=== PATIENT | male | born 1960 | race Caucasian/White ===

== ENCOUNTER 2023-12-12 12:31 | Emergency (ER) | payer MEDICARE, SELFPAY ==
--- NOTE | 2023-12-12 12:31 | ECG_ITS ---
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 Measurements Intervals [place] Rate: 82 P: 21 SC: 195 QRS: -48 QRSD: 94 T: 111 QT: 383 QTc: 450 Interpretive Statements SINUS RHYTHM LEFT AXIS DEVIATION [QRS AXIS < -30] LOW QRS VOLTAGE IN PRECORDIAL LEADS [QRS DEFLECTION < 1.0 mV IN CHEST LEADS] ANTEROSEPTAL MYOCARDIAL INFARCTION , OF INDETERMINATE AGE [40+ ms Q WAVE IN V1-V4] MODERATE T-WAVE ABNORMALITY, CONSIDER LATERAL ISCHEMIA [-0.1+ mV T-WAVE IN I/aVL/V5/V6] No previous ECG available for comparison Electronically Signed On 12-13-2023 9:16:03 CDT by Chuck Taylor M.D. [id number]
[2023-12-12 12:32] VITALS: BP 167/101; PULSE 78; RESP 23; TEMP 37.2; O2SAT 96
[2023-12-12 12:45] VITALS: BP 167/97; PULSE 82; RESP 15; O2SAT 94
--- NOTE | 2023-12-12 12:49 | ED_ITS ---
HPI - Weakness 2 General: Chief complaint: Weakness Stated complaint: weakness Time Seen by Provider: 12/12/23 12:32 History of Present Illness: 63-year-old male presents to the emergen cy room with complaint of generalized weakness lower extremity swelling. No orthopnea no chest pain. He denies dysuria urgency or frequency does smell strongly of urine. Denies any fever sweats or chills. Associated symptoms: Denies chest pain, chills, dysuria or fever(s) Review of Systems 2 Const: Denies: fever(s) or chills Card: Denies: chest pain Resp: Denies: dyspnea GI: Denies: abdominal pain : Denies: dysuria, urinary frequency or urinary urgency Musc: Denies: neck pain or back pain Skin/Breast: Denies: rash Physical Exam 2 Const: GENERAL APPEARANCE: cooperative ORIENTATION/CONSCIOUSNESS: Yes awake, Yes oriented to person, Yes oriented to place and Yes oriented to time HENMT: COMMON NORMALS: normocephalic, atraumatic and hearing grossly normal bilaterally HEAD & SCALP: normocephalic and atraumatic Resp: COMMON NORMALS: normal respiratory effort, No retractions, No use of accessory muscles and clear to auscultation bilaterally AUSCULTATION: clear to auscultation bilaterally Cardio: COMMON NORMALS: regular rate, regular rhythm and No murmurs present (Cardio) RATE: regular rate RHYTHM: regular rhythm GI: COMMON NORMALS: Soft to palpation and No hepatosplenomegaly present A USCULTATION: Yes normoactive bowel sounds PALPATION: Yes Soft to palpation, No Tenderness to palpation present (GI), No Guarding due to palpation present (GI) and Yes No hepatosplenomegaly present Extremity: COMMON NORMALS: normal to inspection, capillary refill normal and no calf tenderness OTHER: 1+ edema lower extremities Neuro: SENSORIUM/ORIENTATION: Yes oriented to person, Yes oriented to place and Yes oriented to time Skin: COMMON NORMALS: no rashes or lesions noted GENERAL SKIN EXAM: no rashes or lesions noted Course 2 Vital Signs: Vital signs: Vital Signs Temperature 98.9 F 12/12/23 12:32 Pulse Rate 85 12/12/23 17:23 Respiratory Rate 15 12/12/23 12:45 Blood Pressure 151/95 12/12/23 17:23 Pulse Oximetry 98 12/12/23 17:23 Oxygen Delivery Me thod Room Air 12/12/23 12:32 MDM - Weakness Medical Decision Making Patient noticed improvement after diuresis. Will discharge patient home on lisinopril 10 mg daily Lasix 20 mg daily set up for outpatient echocardiogram and have the patient follow-up with his primary care doctor early next week. If he has worsening or change symptoms return. He has noticed improvement both swelling in his legs and when he ambulated to the restroom he had no difficulty with chest pain or shortness of breath. Medical Records I reviewed the patient's medical records. Lab Data I reviewed the patient's lab results. 12/12/23 14:48 12/12/23 14:48 Radiology Impressions Chest X-Ray 12/12/23 14:12 IMPRESSION: No acute pathology given technique. Laboratory Results WBC 6.38 10^3/uL (3.29-11.43) 12/12/23 14:48 RBC 4.76 10^6/uL (3.85-5.65) 12/12/23 14:48 Hgb 13.50 g/dL (11.27-16.99) 12/12/23 14:48 Hct 39.7 % (37-53) 12/12/23 14:48 MCV 83.4 fl (82-101) 12/12/23 14:48 MCH 28.4 pg (27-33) 12/12/23 14:48 MCHC 34.0 g/dL (30-55) 12/12/23 14:48 RDW 13.9 % (12.1-15.1) 12/12/23 14:48 Plt Count 232 10^3/cmm (157-399) 12/12/23 14:48 MPV 10.4 fL (7.4-10.4) 12/12/23 14:48 Neut % (Auto) 67.8 % 12/12/23 14:48 Lymph % (Auto) 20.5 % 12/12/23 14:48 [place] % (Auto) 8.5 % 12/12/23 14:48 Eos % (Auto) 1.6 % 12/12/23 14:48 Baso % (Auto) 1.1 % 12/12/23 14:48 Neut # (Auto) 4.33 10^3/uL (1.8-7.7) 12/12/23 14:48 Lymph # (Auto) 1.3 10^3/uL (0.8-4.8) 12/12/23 14:48 [place] # (Auto) 0.5 10^3/uL (0.2-0.9) 12/12/23 14:48 Eos # (Auto) 0.1 10^3/uL (0.0-0.8) 12/12/23 14:48 Baso # (Auto) 0.1 10^3/uL (0.0-0.1) 12/12/23 14:48 Nucleated RBC % (auto) 0 % 12/12/23 14:48 Nucleated RBCs # 0.0 /100WBC 12/12/23 14:48 Sodium 132 mmol/L (136-145) L 12/12/23 14:48 Potassium 4.2 mmol/L (3.5-5.1) 12/12/23 14:48 Chloride 96 mmol/L (98-107) L 12/12/23 14:48 Carbon Dioxide 26 mmol/L (22-29) 12/12/23 14:48 Anion Gap 14.2 (5-19) 12/12/23 14:48 BUN 18 mg/dL (8-23) 12/12/23 14:48 Creatinine 1.4 mg/dL (0.7-1.2) H 12/12/23 14:48 GFR Calculation 50.9 mL/min (90-130) L 12/12/23 14:48 Glucose 129 mg/dL (65-115) H 12/12/23 14:48 Calculated Osmolality 278 mOsm/kg (285-295) L 12/12/23 14:48 Calcium 8.7 mg/dL (8.5-10.5) 12/12/23 14:48 Total Bilirubin 0.6 mg/dL (0.15-1.2) 12/12/23 14:48 AST 22 U/L (0-40) 12/12/23 14:48 ALT 8 U/L (0-41) 12/12/23 14:48 Alkaline Phosphatase 56 U/L (40-130) 12/12/23 14:48 NT-Pro-B Natriuret Pep 2428 pg/mL (0-125) H 12/12/23 14:48 Total Protein 7.7 g/dL (6.6-8.7) 12/12/23 14:48 Albumin 4.2 g/dL (3.5-5.2) 12/12/23 14:48 Globulin 3.5 g/dL (1.3-4.6) 12/12/23 14:48 All radiology interpretation(s) finalized by discharge Discharge Plan Discharge Patient Disposition: Home Clinical Impression: CHF (congestive heart failure), HTN (hypertension), CKD (chronic kidney disease) Condition: Stable Prescriptions: New Lasix 20 mg tablet 20 mg PO DAILY Qty: 30 0RF lisinopril 10 mg tablet 10 mg PO DAILY Qty: 30 0RF Discharge Orders: Discharge ED (Routine); Ordered 12/12/23 Ordered By: Noel Diaz Discharge Diet: Usual diet Discharge Activity: Resume usual activity Patient Instructions: Opioid Safety, Pain Management Activity Restrictions/Additional Instructions: Thank you for choosing [facility] for your healthcare needs today. It is very important that you follow up as instructed or that you return to the Emergency Department should you have concerns or if your condition changes or worsens in any way. You were seen in the emergency room for swelling in your legs and some shortness of breath. You are mildly fluid overloaded your blood pressure is elevated. Recommend to start Lasix 20 mg once daily and lisinopril 10 mg once daily. Additionally will get she set up for an outpatient echocardiogram. You should follow-up with your doctor within a week. Coding Level of Care Code ED Property Inspector for Emily Aldrich Related Data Previous Rx's Medication Instructions Recorded furosemide 20 mg tablet (Lasix) 20 mg PO DAILY #30 tabs 12/12/23 lisinopril 10 mg tablet 10 mg PO DAILY #30 tabs 12/12/23 Allergies Allergy/AdvReac Type Severity Reaction Status Date / Time No Known Allergies Allergy Verified 12/12/23 12:38
--- NOTE | 2023-12-12 14:12 | XRR_ITS ---
PROCEDURE INFORMATION: Exam: XR Chest Exam date and time: 12/12/2023 2:33 PM Age: 63 years old Clinical indication: Dyspnea and shortness of breath; Additional info: Dyspnea/cough TECHNIQUE: Imaging protocol: Radiologic exam of the chest. Views: 1 view. COMPARISON: No relevant prior studies available. FINDINGS: Lungs: No significant active pulmonary pathology. Pleural spaces: No pleural effusion. Heart/Mediastinum: Cardiomediastinal contours accentuated by low lung volumes and AP technique. Diaphragm: Elevated right hemidiaphragm. Bones/joints: No significant pathology. XR/XR chest 1V portable [id number] IMPRESSION: No acute pathology given technique.
[2023-12-12 14:36] VITALS: BP 149/97; PULSE 85; O2SAT 98
[2023-12-12] MEDS: FUROsemide 10 mg/mL SDV 4mL 40 MG IVP (14:36)
[2023-12-12 14:59] LABS: Basophils # 0.1 10^3/uL (0.0-0.1); Basophils % 1.1 %; Eosinophils # 0.1 10^3/uL (0.0-0.8); Eosinophils % 1.6 %; Hematocrit 39.7 % (37-53); Lymphocytes # 1.3 10^3/uL (0.8-4.8); Lymphocytes % 20.5 %; Mean Corpuscular Hemoglobin 28.4 pg (27-33); Mean Corpuscular Volume 83.4 fl (82-101); Mean Platelet Volume 10.4 fL (7.4-10.4); Monocytes # 0.5 10^3/uL (0.2-0.9); Monocytes % 8.5 %; Neutrophils # 4.33 10^3/uL (1.8-7.7); Neutrophils % 67.8 %; Nucleated Red Blood Cells % 0 %; Platelet Count 232 10^3/cmm (157-399); Red Blood Count 4.76 10^6/uL (3.85-5.65); Red Cell Distribution Width 13.9 % (12.1-15.1); White Blood Count 6.38 10^3/uL (3.29-11.43)
[2023-12-12 15:29] LABS: Alanine Aminotransferase 8 U/L (0-41); Albumin Level 4.2 g/dL (3.5-5.2); Alkaline Phosphatase 56 U/L (40-130); Anion Gap 14.2 (5-19); Aspartate Amino Transferase 22 U/L (0-40); Blood Urea Nitrogen 18 mg/dL (8-23); Calcium 8.7 mg/dL (8.5-10.5); Carbon Dioxide 26 mmol/L (22-29); Chloride 96 mmol/L (98-107); Globulin 3.5 g/dL (1.3-4.6); Glomerular Filtration Rate 50.9 mL/min (90-130); Glucose 129 mg/dL (65-115); NT Pro B Type Natriuretic Pept 2428 pg/mL (0-125); Osmolality Calculated 278 mOsm/kg (285-295); Potassium 4.2 mmol/L (3.5-5.1); Sodium 132 mmol/L (136-145); Total Bilirubin 0.6 mg/dL (0.15-1.2); Total Protein 7.7 g/dL (6.6-8.7)
[2023-12-12 15:43] VITALS: BP 167/100; PULSE 86; O2SAT 98
[2023-12-12 17:23] VITALS: BP 151/95; PULSE 85; O2SAT 98
--- NOTE | 2023-12-14 07:49 | DCPLANNER ---
faxed echo order to scheduling for er f/u
== END 2023-12-12 17:24 | disposition home or self-care (01) ==
PROVIDERS: Emergency Provider Family Medicine
DX: I13.0 Hypertensive heart and chronic kidney disease with heart failure and stage 1 through stage 4 chronic kidney disease, or unspecified chronic kidney disease (principal); N18.9 Chronic kidney disease, unspecified; I50.9 Heart failure, unspecified
CPT/HCPCS: 36415; 71045; 80053; 83880; 85025; 93005; 96374; 99285; J1940

== ENCOUNTER → 2024-07-06 12:41 | Outpatient (BNVA) | payer MEDICARE, SELFPAY | PROVIDERS: PCP Registered Nurse; Visit Provider Internal Medicine | DX: I13.0 Hypertensive heart and chronic kidney disease with heart failure and stage 1 through stage 4 chronic kidney disease, or unspecified chronic kidney disease (principal); N18.9 Chronic kidney disease, unspecified; I50.9 Heart failure, unspecified; Z87.891 Personal history of nicotine dependence; R07.9 Chest pain, unspecified | CPT/HCPCS: 36415; 80048; 83880; 93005; 99204 ==

== ENCOUNTER 2024-07-21 08:06 | Outpatient (CLI) | payer MEDICARE, SELFPAY ==
[2024-07-21 08:32] VITALS: BMI 38.2
--- NOTE | 2024-07-21 08:33 | NMCV_ITS ---
NM tracee perf SPECT r/s* [id number] Kapil Galan Age: 64 Gender: M : 1960 Exam Date: 07/21/2024 10:18 Ordering Phys: Chuck Taylor M.D ([email or web address]) Technologist: KAT Snow Exam Location: [facility] Indications: CP STRESS TEST Please see separate stress test report in [facility] for full findings IMAGE PROTOCOL Rest/Stress 1 Lexiscan Day Radiopharmaceutical Dose (mCi) Administration Site Administered by Rest: Tc-99m 10.8 IV KAT Snow Sestamibi Stress:Tc-99m 32.7 IV KAT Garay Sestamibi Rest: 21-Jul-2024 60 Discovery 630 Stress: 21-Jul-2024 30 Discovery 630 0.4mg Lexiscan. Images obtained in supine and prone position. SPECT RESULTS Technical Quality: Good Raw Data Analysis: Normal Image Corrections: No attenuation or motion correction applied Summed Stress Score: 9 Summed Rest Score: 6 Summed Difference Score: 3 PERFUSION FINDINGS Large sized, partially reversible perfusion defects seen in inferior and inferolateral sethi. This is consistent with the large area of prior infarct with significant rafi-infarct ischemia in the RCA territory. Medium to large sized area of prior infarct seen in left circumflex artery territory. FUNCTIONAL RESULTS (calculated via Gated SPECT) Stress Image LV EF (%): 44 Stress EDV (mL):126 TID: 1.1 Stress ESV (mL):71 FUNCTIONAL FINDINGS: LV systolic function is mildly reduced with EF of 44% IMPRESSIONS 1. Abnormal myocardial perfusion imaging with large area of prior infarct with significant rafi-infarct ischemia seen in RCA territory. 2. Medium to large size area of prior infarct seen in left circumflex artery territory. 3. LV systolic function is mildly decreased with EF of 44%. Chuck Taylor MD (Electronically Signed) Final Date: 26 July 2024 08:57 S
--- NOTE | 2024-07-21 08:33 | ECG_ITS ---
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 Interpretive Statements LEXISCAN SESTAMIBI STRESS TEST Procedure: At the baseline, the blood pressure was 147/89 mmHg with a heart rate of 76 bpm. The electrocardiogram showed normal sinus rhythm, normal axis with normal ST and T's. The Lexiscan was infused over a period of 20 seconds. A total of 0.4 mg of Lexiscan was infused. The stress phase was continued for a total of 5 minutes. Heart rate was at the end of stress phase was 88 bpm and a blood pressure of 128/67 mmHg. The EKG at the peak infusion revealed normal sinus rhythm with no significant ST-T wave changes. Sestamibi was injected 20 seconds after the Lexiscan infusion. Blood pressure at the end of recovery phase was 130/74 mmHg with a heart rate of 88 bpm. Conclusion: 1. Normal EKG response to Lexiscan infusion 2. No Lexiscan induced chest pain or cardiac arrhythmia. 3. Normal blood pressure and heart rate response. 4. Sestamibi/sestamibi perfusion scan pending; see separate report. Electronically Signed On 08-01-2024 10:56:49 CDT by Chuck Taylor M.D. [email or web address] [id number]
[2024-07-21] MEDS: regadenoson 0.4 Mg/5 ml Syringe IVP (09:44)
[2024-07-21 09:55] VITALS: BP 130/74; PULSE 89
== END 2024-07-21 08:07 | disposition home or self-care (01) ==
LOC: CDL 08:08
PROVIDERS: PCP Registered Nurse; Visit Provider Internal Medicine
DX: R07.9 Chest pain, unspecified (principal); R06.02 Shortness of breath; R93.1 Abnormal findings on diagnostic imaging of heart and coronary circulation
CPT/HCPCS: 36415; 78452; 93017; 96374; A9500; J2785

== ENCOUNTER 2024-08-05 08:50 | Outpatient (CLI) | payer MEDICARE, SELFPAY ==
[2024-08-05] VITALS (24 sets, daily range): BP systolic 108–172; BP diastolic 69–103; PULSE 75–93; RESP 12–29; TEMP 36.7; O2SAT 95–100; BMI 37.0
--- NOTE | 2024-08-05 09:00 | XACV_ITS ---
Exam Room: 2 Ht: 185 cm Wt: 127 kg BSA: 2.61 m2 Gender: Male : 1960 Any Known Allergies: No known allergies Exam Priority: Routine Procedure(s): Procedure Description: Diagnostic procedure Procedure Description: Left Heart Catheterization Procedure Description: Coronary Angiography Diagnostic Cath Status: Elective Diagnostic Findings * INDICATION: 64-year-old man with past medical history of hypertension has recently been found to have low LV function and has chest pain episodes. Stress test was abnormal. Plan for coronary angiogram with possible PCI. Risks and benefit of procedure discussed. * Left Main has no significant disease. * Circumflex has mild luminal irregularities. * Proximal Left Anterior Descending: severe 80- 90% stenosis, BROOKE: 3 flow. * Mid Right Coronary Artery to Distal Right Coronary Artery: Chronic total occlusion, BROOKE: 0 flow. Left to right collaterals seen. * Mid Left Anterior Descending to Distal Left Anterior Descending: severe 90% stenosis, BROOKE: 3 flow. * Coronary angiography shows right dominance. Conclusions 1. Severe proximal and mid LAD stenosis. LOG FEEDER of RCA. All options including CABG vs PCI of LAD and RCA LOG FEEDER revascularization discussed in detail. patient and family will discuss over the weekend and call next week with final plan. Recommendations * Start aspirin 81 mg daily. Cardiology follow up in 1-2 weeks. Pressures Phase:Rest AO : 132 / 75 ( 94 ) @ 12:13:00 PM 131 / 74 ( 95 ) @ 12:22:00 PM 131 / 74 ( 96 ) @ 12:22:00 PM LV : 137 / -13 / 3 @ 12:22:00 PM 137 / -13 / 3 @ 12:22:00 PM Valves Phase:DefaultPhase AV : 7.0 @ 11:29:02 AM AV Mean Gradient: 19.0 @ 11:29:02 AM Clinical Evaluation EBL: 5mL-10mL Procedural Details Procedure Consent Obtained. Pre-Procedure Time Out. Identified patient by full name and date of as verbalized by the patient/guarantor. Does the consent match the physician's order: Yes. Accurate & Complete Informed Consent: Yes. Inpatient/Outpatient History & Physical on Chart: Yes. If H&P is completed, is and addenduem needed: No. Visualize and Verify Site with Patient/Guarantor: N/A. Relevant Radiology Images available: Yes. The risks, benefits, and alternatives of sedation and/or procedure were discussed by physician. The patient agrees to continue. Procedure started. [facility] Clinical Fraility Score: 3: Managing Well. Geriatric Personal Care Aide Indications: LV Dysfunction; abnormal stress test. Chest Pain Symptom Assessment: Typical Angina Symptoms. Cardiovascular Instability: No. Correct patient, site and procedure confirmed by cath team. PERRLA. Strong, equal hand consulting senior practice director bilaterally. Lungs clear x 5 lobes. IV Site on Arrival: 20 gauge in the left anticubital. IV Fluids: 0.9% NaCl at KVO. 0 mL infused prior to label folder. Pre Procedural Pulses: bilateral dorsalis pedis was Doppled. Pre Procedural Pulses: bilateral posterior tibial was Doppled. Pre Procedural Pulses: bilateral radial was 3+. Oxygen started at 2liters/min via nasal canula. right groin was prepped with chloroprep then draped in the usual sterile fashion. right radial was prepped with chloroprep then draped in the usual sterile fashion. Physician notified. Baseline sample Acquired. HR: 96 BPM. Patient's family in CPRU room #4. Dr. Taylor will update at the completion of the procedure. Equipment: 6F - Radial. Cardiac Cath Pack. ACIST Manifold Kit Model BT 2000. Heparinized Saline (2 units/mL), 1000 mL bag. Physician arrived. Physician scrubbed in. Immediate Pre-Procedure Time Out. Correct Patient: Yes; Correct Procedure: Yes; Correct Site: Yes; Correct Patient Position: Yes; Correct Supplies: Yes; Dried Flammable Prep: Yes; Blood Products Available: N/A;. Lidocaine 1% infiltrated to the right radial. Arterial access obtained. A 5 yakut TIG catheter in over the exchange J wire. Multiple views taken of left coronary artery. Catheter redirected to the RCA. Catheter redirected to the LV. Cineography of the RCA performed. EDP Sample taken: LV 137/-14,3; HR: 81 BPM; SpO2: 98%. Pullback taken: LV 137/-14,3; AO 131/74(95); Mean: 19mmHg, Peak to Peak: 7mmHg, SEP: 8sec/min; HR: 81 BPM; SpO2: 99%. Catheter removed over the exchange J wire. Dr. Taylor scrubbed out. A TR Band was successful obtaining hemostatsis at the Right Radial artery insertion site. Post Procedure: Pulses reassessed and unchanged. PERRLA. Strong, equal hand consulting senior practice director bilaterally. No VTE prophylaxis required. Medication's Wasted: Lidocaine 1% = 18 mL. Medication's Wasted: Nitro = 49.8 mg. Medication's Wasted: Heparin = 1000 units. Total IV fluids: 50 mL. Post-op diagnosis: Multivessel CAD. Complications: none. Estimated blood loss: 5mL-10mL. Responsiveness - Normal response to verbal stimuli; alert and oriented, PERRLA. Airway - Unaffected, no intervention required; spontaneous ventilation. Circulation: W/N/L, pulses unchanged. Nausea/Vomiting: No. Procedure completed. Patient transferred by bed to CPRU. Vital chart was stopped. Access Site Site: Right Radial artery Sheath Size: 6 Fr Hemostasis Method: TR Band Hemostasis Success: Successful Procedure Medications Start: 11:09 AM Stop: 11:09 AM Medication: Versed Amount: 1 mg Route: I.V. Start: 11:09 AM Stop: 11:09 AM Medication: Fentanyl Amount: 25 mcg Route: I.V. Start: 11:03 AM Stop: 11:03 AM Medication: Versed Amount: 1 mg Route: I.V. Start: 11:03 AM Stop: 11:03 AM Medication: Fentanyl Amount: 50 mcg Route: I.V. Start: 11:10 AM Stop: 11:10 AM Medication: Nitrogylcerin Amount: 200 mcg Route: I.A. Start: 11:15 AM Stop: 11:15 AM Medication: Heparin Amount: 5000 units Route: I.V. Start: 11:22 AM Stop: : AM Medication: Fentanyl Amount: 25 mcg Route: I.V. I, the attending physician, have reviewed and verified all procedure medications. Yes, all medications given per verbal order History/Risk Factors Hypertension: Yes Dyslipidemia: No Peripheral Arterial Disease (PAD): No Myocardial Infarction (NM): No Obesity: Yes Renal Disease: No Tobacco Use: Former Prior Interventions PCI: No CABG: No Valve Surgery: No Report Signatures Finalized by Chuck Taylor MD on 08/08/2024 11:51 AM
[2024-08-05] MEDS: diphenhydrAMINE 50 mg Capsule PO (09:30)
[2024-08-05] MEDS: aspirin 325 mg Tablet PO (09:30)
[2024-08-05 09:32] LABS: Basophils # 0.1 10^3/uL (0.0-0.1); Basophils % 1.2 %; Eosinophils # 0.1 10^3/uL (0.0-0.8); Eosinophils % 1.5 %; Lymphocytes % 26.5 %; Mean Corpuscular HGB Conc 33.3 g/dL (30-55); Mean Corpuscular Hemoglobin 27.4 pg (27-33); Mean Corpuscular Volume 82.3 fl (82-101); Mean Platelet Volume 9.5 fL (7.4-10.4); Monocytes # 0.5 10^3/uL (0.2-0.9); Monocytes % 7.3 %; Neutrophils # 4.69 10^3/uL (1.8-7.7); Neutrophils % 63.1 %; Nucleated Red Blood Cells % 0 %; Platelet Count 328 10^3/cmm (157-399); Red Blood Count 4.86 10^6/uL (3.85-5.65); White Blood Count 7.43 10^3/uL (3.29-11.43)
[2024-08-05 09:51] LABS: Anion Gap 15.5 (5-19); Blood Urea Nitrogen 20 mg/dL (8-23); Calcium 9.4 mg/dL (8.5-10.5); Carbon Dioxide 25 mmol/L (22-29); Chloride 101 mmol/L (98-107); Glucose 187 mg/dL (65-115); Osmolality Calculated 292 mOsm/kg (285-295); Potassium 4.5 mmol/L (3.5-5.1); Sodium 137 mmol/L (136-145)
--- NOTE | 2024-08-05 10:54 | W.PM.OPSFHP ---
Same Day Surgery H&P Indication for Procedure/HPI DATE OF PROCEDURE: August 05, 2024 CHIEF COMPLAINT/INDICATIONFOR SURGICAL PROCEDURE: LV dysfunction/ abnormal stress test PREOP DIAGNOSIS: LV dysfunction/ abnormal stress test PLANNED PROCEDURE: Operation Date: 08/05/24 10:00 Proposed Procedures p Cardiac Catheterization - [facility] w/w/o LV coros(Left) - Chuck Taylor M.D Possible percutaneous coronary intervention 64-year-old man with past medical history of hypertension has recently been found to have low LV function and has chest pain episodes. Stress test was abnormal. Plan for coronary angiogram with possible PCI. Risks and benefit of procedure discussed. Medications/Allergies* Home Medications ?Medication ?Instructions ?Recorded ?Confirmed ?Type spironolactone 25 mg tablet 25 mg PO DAILY 07/06/24 08/04/24 History furosemide 20 mg tablet (Lasix) 40 mg PO DAILY 08/04/24 08/05/24 History lisinopril 20 mg tablet 40 mg PO DAILY 08/04/24 08/05/24 History simvastatin 5 mg tablet 5 mg PO QPM 08/05/24 08/05/24 History Allergies/Adverse Reactions Allergy/AdvReac Type Severity Reaction Status Date / Time No Known Allergies Allergy Verified 07/06/24 12:57 Current Medications: Generic Name Dose Route Start Last Admin Trade Name Freq PRN Reason Stop Dose Admin Sodium Chloride 1,000 mls @ 50 mls/hr 08/05/24 09:00 08/05/24 09:52 Sodium Chloride 0.9% IV 08/06/24 04:59 Not Given .Q20H ONE Pertinent History/Comorbid Conditions* Social History Smoking and tobacco/nicotine status: former use of tobacco/nicotine (chewing tobacco) Pertinent Exam Findings alert, oriented x 3, clear to auscultation bilaterally and regular rate & rhythm Conscious Sedation Assessment PATIENT ASSESSED PRIOR TO SEDATION, WITH NO CHANGE NOTED: Yes AIRWAY EVAL/ANESTHESIA PLAN: normal airway, ASA III, Local Anesthesia, Risks, benefits & alternatives of sedation and/or procedure discussed and Patient agrees to continue as planned ADDITIONAL INFORMATION: Moderate sedation Recommendations Risks and benefits of procedure reviewed and Patient/family agree to proceed Surgery/Procedure today (Left heart cath with possible percutaneous coronary intervention) Coding Level of Care Code Acute Code for Javier Valdemar
--- NOTE | 2024-08-05 12:05 | PM.PROC ---
Procedure Note: Date of procedure: 08/05/24 Pre-procedure diagnosis: LV dysfunction/abnormal stress test Post-procedure diagnosis: other (Severe LAD stenosis. POWERTRAIN CONTROL SYSTEMS ENGINEER of RCA) Procedure: Left main artery is patent. Left circumflex artery is patent. LAD has severe proximal and mid vessel stenosis. RCA has mid to distal vessel POWERTRAIN CONTROL SYSTEMS ENGINEER. Has left to right collaterals to the PDA/ PLV We have stopped after diagnostic imaging today. Discussed with patient and family about all options including referring him for heart team discussion regarding CABG versus PCI of LAD and possible attempt at RCA POWERTRAIN CONTROL SYSTEMS ENGINEER revascularization. Patient and family will decide over the weekend and inform us by tomorrow. Start aspirin 81 mg daily. Outpatient cardiology follow up in 7-10 days Performing Provider: Chuck Taylor Estimated blood loss (mL): 5 Complications: None Condition: stable Disposition: same day Coding Level of Care Code Acute Code for Emily Aldrich
== END 2024-08-05 14:50 | disposition home or self-care (01) ==
PROVIDERS: Family Provider Family Medicine; PCP Registered Nurse; Visit Provider Internal Medicine
DX: I25.10 Atherosclerotic heart disease of native coronary artery without angina pectoris (principal); I25.82 Chronic total occlusion of coronary artery; I10 Essential (primary) hypertension; E66.9 Obesity, unspecified; Z68.37 Body mass index [BMI] 37.0-37.9, adult; Z87.891 Personal history of nicotine dependence
CPT/HCPCS: 36415; 80048; 85025; 93458; 96374; 99152; 99153; C1769; C1887; C1894; J1644; J2250; J3010; J3490; J7030; J9999; Q0163; Q9967

== ENCOUNTER → 2024-08-12 07:46 | Outpatient (BNVA) | payer MEDICARE, SELFPAY | PROVIDERS: Family Provider Family Medicine; PCP Registered Nurse; Visit Provider Nurse Practitioner Family | DX: I13.0 Hypertensive heart and chronic kidney disease with heart failure and stage 1 through stage 4 chronic kidney disease, or unspecified chronic kidney disease (principal); N18.9 Chronic kidney disease, unspecified; I25.10 Atherosclerotic heart disease of native coronary artery without angina pectoris; I35.0 Nonrheumatic aortic (valve) stenosis; I50.33 Acute on chronic diastolic (congestive) heart failure | CPT/HCPCS: 36415; 80053; 85025; 85610; 99214 ==

== ENCOUNTER 2024-08-25 06:03 | Outpatient (CLI) | payer MEDICARE, SELFPAY ==
[2024-08-25] VITALS (19 sets, daily range): BP systolic 127–169; BP diastolic 55–95; PULSE 60–80; RESP 12–18; TEMP 36.9–37.1; O2SAT 95–99; BMI 36.1
--- NOTE | 2024-08-25 06:00 | XACV_ITS ---
Ht: 185 cm Wt: 124 kg BSA: 2.57 m2 Gender: Male : 1960 Any Known Allergies: No known allergies Exam Priority: Routine Procedure(s): Procedure Description: Diagnostic procedure Procedure Description: PCI procedure Procedure Description: Coronary IVUS Procedure Description: Drug Eluting Coronary Stent Procedure Description: PTCA Procedure Description: Miscellaneous Procedure Description: ACT Procedure Description: Coronary Angiography Diagnostic Cath Status: Elective Diagnostic Findings * INDICATION: Severe LAD stenosis and PALLIATIVE MEDICINE PHYSICIAN of RCA. Plan for staged PCI. * Left Main has no significant disease. * Circumflex has mild luminal irregularities. * Proximal Left Anterior Descending to Proximal Left Anterior Descending: significant 80-90% stenosis, BROOKE: 3 flow. * Mid to distal Left Anterior Descending to Mid Left Anterior Descending: severe 90% stenosis, BROOKE: 3 flow. * Mid Right Coronary Artery to Distal Right Coronary Artery: chronic total occlusion, BROOKE: 0 flow. * Coronary angiography shows right dominance. PCI Status: Elective Interventional Findings * Proximal Left Anterior Descending to Proximal Left Anterior Descendin-90% stenosis treated with a MDT XIN EUPHORA RX [id number] BALLOON, MDT R ANDRY 2.75X30 KATERINA, MDT NC EUPHORA RX 3.85E53KC BALLOON, MDT R ANDRY 3.5X38 KATERINA, MDT R ANDRY 4.0X12 KATERINA, and NC Balloon 4.0x 27 mm. 0% residual stenosis, BROOKE: 3 flow. * Procedure detail: We engaged left main artery with XB 3.5 guide catheter. IV heparin was administered to maintain anticoagulation. Run-through wire was used to cross the LAD stenosis and was put in distal vessel. We predilated the mid to distal LAD stenosis with 2.25 x 20 mm semicompliant balloon. This was followed by predilation with 2.5 x 20 mm NC balloon. Same balloon was used to predilate the proximal vessel stenosis. IVUS was used to sized stents. We then placed 2.75 x 30 mm resolute Andry drug-eluting stent in mid to distal LAD. This was followed by predilation of proximal LAD with 3.5 x 27 mm NC balloon. We then placed 3.5 x 38 mm resolute Redgranite drug-eluting stent. Another overlapping stent was placed on the proximal LAD which was 4.0 x 12 mm resolute Redgranite. Stents were postdilated with 4.0 x 27 mm NC balloon. At this time final angiogram was performed that showed excellent stent expansion and no residual stenosis. Guidewire and guide catheter were removed. Brief attempt was made to cross RCA PALLIATIVE MEDICINE PHYSICIAN however wire could not cross. Medical therapy was decided. Patient left the Density Control Puncher in stable condition. * Mid Left Anterior Descending to Mid Left Anterior Descendin% stenosis treated with a AB TREK 2.25X20 RX BALLOON, MDClaudia NC EUPHORA RX 2.20E97PC BALLOON, and MDT R ANDRY 2.75X30 KATERINA. 0% residual stenosis, BROOKE: 3 flow. Conclusions 1. Severe LAD stenosis status post successful revascularization with 3 stents.. 2. Proximal Left Anterior Descending to Proximal Left Anterior Descending was treated with a Balloon, Drug Eluting Stent, Balloon, Drug Eluting Stent,and Balloon. 3. Mid Left Anterior Descending to Mid Left Anterior Descending was treated with a Balloon, Balloon, and Drug Eluting Stent. Recommendations * Dual antiplatelet therapy with aspirin and plavix. * High intensity statin therapy. * Outpatient cardiology follow up in 2 weeks. Interventional RX Recommendation: PCI w/o planned CABG Diagnostic RX Recommendation: PCI w/o planned CABG Anticoagulation: Heparin Clinical Evaluation EBL: 5mL-10mL Procedural Details Procedure Consent Obtained. Admit Source: Out Patient. Pre-Procedure Time Out. Identified patient by full name and date of as verbalized by the patient/guarantor. Does the consent match the physician's order: Yes. Accurate & Complete Informed Consent: Yes. Inpatient/Outpatient History & Physical on Chart: Yes. If H&P is completed, is and addenduem needed: No; If yes, is the addendum complete: N/A. Visualize and Verify Site with Patient/Guarantor: N/A. Relevant Radiology Images available: N/A. The risks, benefits, and alternatives of sedation and/or procedure were discussed by physician. The patient agrees to continue. Procedure started. [facility] Clinical Fraility Score: 4: Vulnerable. Density Control Puncher Indications: Other. Chest Pain Symptom Assessment: Typical Angina Symptoms. Current diagnosis: Severe CAD; Staged PCI. PERRLA. Strong, equal hand buckle strap drum operator bilaterally. Lungs clear x 5 lobes. IV Site on Arrival: 20 gauge in the left anticubital. IV Fluids: 0.9% NaCl at KVO. 0 mL infused prior to logging rafter laborer. Pre Procedural Pulses: bilateral posterior tibial was Doppled. Pre Procedural Pulses: bilateral dorsalis pedis was Doppled. Pre Procedural Pulses: bilateral radial was 3+. Oxygen started at 3liters/min via nasal canula. bilateral groins was prepped with chloroprep then draped in the usual sterile fashion. Physician notified. Baseline sample Acquired. HR: 136 BPM. Physician arrived. Physician scrubbed in. Family updated by . Immediate Pre-Procedure Time Out. Correct Patient: Yes; Correct Procedure: Yes; Correct Site: Yes; Correct Patient Position: Yes; Correct Supplies: Yes; Dried Flammable Prep: Yes; Blood Products Available: N/A;. Lidocaine 1% infiltrated to the right groin. Arterial access obtained. 6 guyanese XB 3.5 guide catheter was inserted over the wire. Unable to seat guide seated in the LCS. Catheter removed over the wire. 6 guyanese XB 3 guide catheter was inserted over the wire. ACT drawn. Results 285 seconds. Therapeutic limits - pre-heparin administration 90-150 seconds and monitoring heparin during a vascular procedure >250 seconds. Guide seated in the LCS. Runthrough guidewire was advanced through the guide catheter to lesion in the mid LAD. Guidewire advanced across lesion. Inflation number : 1 A AB TREK 2.25X20 RX BALLOON was prepped and advanced across the Mid LAD , then inflated to 12 KECIA for 0:14 seconds. Inflation number: 2 The AB TREK 2.25X20 RX BALLOON was reinflated across the Mid LAD, to 14 KECIA for 0:09 seconds. Inflation number: 3 The AB TREK 2.25X20 RX BALLOON was reinflated across the Mid LAD, to 14 KECIA for 0:12 seconds. Results checked. Balloon out. Inflation number : 4 A MDT NC EUPHORA RX 2.01V98RQ BALLOON was prepped and advanced across the Mid LAD , then inflated to 14 KECIA for 0:15 seconds. Inflation number: 5 The MDT NC EUPHORA RX 2.92U77KR BALLOON was reinflated across the Mid LAD, to 14 KECIA for 0:10 seconds. Inflation number: 1 The MDT NC EUPHORA RX 2.39Q80GF BALLOON was reinflated across the Prox LAD, to 12 KECIA for 0:09 seconds. Inflation number: 2 The MDT NC EUPHORA RX 2.89O84BI BALLOON was reinflated across the Prox LAD, to 16 KECIA for 0:12 seconds. Inflation number: 3 The MDT NC EUPHORA RX 2.29K83VN BALLOON was reinflated across the Prox LAD, to 16 KECIA for 0:10 seconds. Results checked. Balloon out. Inflation Number : 6 A MDT R ANDRY 2.75X30 KATERINA -Lot Number# [id number] EXP 07/14/26 was prepped and advanced across the Mid LAD. The stent was deployed at 14 KECIA for 0:20 seconds. Inflation number: 4 The stent balloon was then re-inflated across the Prox LAD to 12 KECIA for 0:08 seconds. Stent balloon out over wire. Results checked. IVUS catheter inserted. IVUS OF THE MID LAD POST STENT AND PROXIMAL LAD PRE STENTING PERFORMED. Inflation number : 5 A MDT NC EUPHORA RX 3.52X52PF BALLOON was prepped and advanced across the Prox LAD , then inflated to 14 KECIA for 0:15 seconds. Inflation number: 6 The MDT NC EUPHORA RX 3.78Q91KY BALLOON was reinflated across the Prox LAD, to 16 KECIA for 0:13 seconds. Balloon out. Results checked. Inflation number: 7 The MDT NC EUPHORA RX 2.30X39HE BALLOON was reinflated across the Mid LAD, to 22 KECIA for 0:16 seconds. Inflation number: 8 The MDT NC EUPHORA RX 2.00F53FO BALLOON was reinflated across the Mid LAD, to 20 KECIA for 0:10 seconds. Balloon out. Results checked. Inflation Number : 7 A MDT R ANDRY 3.5X38 KATERINA -Lot Number# [id number] EXP 03/06/27 was prepped and advanced across the Prox LAD. The stent was deployed at 12 KECIA for 0:25 seconds. Results checked. Stent balloon out over wire. Inflation Number : 8 A MDT R ANDRY 4.0X12 KATERINA -Lot Number# [id number] EXP 09/13/2026 was prepped and advanced across the Prox LAD. The stent was deployed at 12 KECIA for 0:16 seconds. Results checked. Stent balloon out over wire. Inflation number : 9 A NC Balloon 4.0x 27 mm was prepped and advanced across the Prox LAD , then inflated to 12 KECIA for 0:37 seconds. Inflation number: 10 The NC Balloon 4.0x 27 mm was reinflated across the Prox LAD, to 16 KECIA for 0:17 seconds. Results checked. Inflation number: 11 The NC Balloon 4.0x 27 mm was reinflated across the Prox LAD, to 18 KECIA for 0:12 seconds. Balloon out. Results checked. Wire out. Guide catheter out. 6 guyanese JR 4 guide catheter was inserted over the wire. Guide seated in the RCA. ACT drawn. Results 337 seconds. Therapeutic limits - pre-heparin administration 90-150 seconds and monitoring heparin during a vascular procedure >250 seconds. Runthrough guidewire was advanced through the guide catheter to lesion in the mid RCA. Wire out. Results checked. Guide catheter out. Physician review of films. A Right femoral angiogram was performed to determine safe placement of closure device. [id number]. A Angio-Seal VIP ([place] [facility]) was successful obtaining hemostatsis at the Right Femoral artery insertion site. lot [id number] EXP 03/03/2025. Angioseal placed without complications. No signs or symptoms of hematoma noted. Sterile dressing applied per usual sterile fashion. Post Procedure: Pulses reassessed and unchanged. PERRLA. Strong, equal hand buckle strap drum operator bilaterally. No VTE prophylaxis required. Medication's Wasted: Lidocaine 1% = 10 ML , Nitro = 50 MG , Heparin = 3000 UNITS. Total IV fluids: 55 mL. Fluoro: 18:09. Contrast type used: Omnipaque 300 mgI/mL, 500 mL bottle. Post-op diagnosis: Successful revascularization of the LAD x 3 KATERINA. Complications: None. Estimated blood loss: 5mL-10mL. Responsiveness - Normal response to verbal stimuli; alert and oriented, PERRLA. Airway - Unaffected, no intervention required; spontaneous ventilation. Circulation: W/N/L, pulses unchanged. Nausea/Vomiting: No. Procedure completed. Patient transferred by bed to CPRU. Vital chart was stopped. ACT drawn. Results 290 seconds. Therapeutic limits - pre-heparin administration 90-150 seconds and monitoring heparin during a vascular procedure >250 seconds. Access Site Site: Right Femoral artery Sheath Size: 6 Fr Hemostasis Method: Angio-Seal VIP ([facility] Ha) Hemostasis Success: Successful Procedure Medications Start: 7:06 AM Stop: 7:06 AM Medication: Plavix Amount: 600 mg Route: P.O. Start: 7:10 AM Stop: 7:10 AM Medication: Versed Amount: 1 mg Route: I.V. Start: 7:10 AM Stop: 7:10 AM Medication: Fentanyl Amount: 50 mcg Route: I.V. Start: 7:18 AM Stop: 7:18 AM Medication: Heparin Amount: 51133 units Route: I.V. Start: 7:25 AM Stop: 7:25 AM Medication: Versed Amount: 1 mg Route: I.V. Start: 7:31 AM Stop: 7:31 AM Medication: Heparin Amount: 1000 units Route: I.V. Start: 7:36 AM Stop: 7:36 AM Medication: Fentanyl Amount: 25 mcg Route: I.V. Start: 7:39 AM Stop: 7:39 AM Medication: Heparin Amount: 1000 units Route: I.V. Start: 8:10 AM Stop: 8:10 AM Medication: Fentanyl Amount: 25 mcg Route: I.V. I, the attending physician, have reviewed and verified all procedure medications. Yes, all medications given per verbal order History/Risk Factors Hypertension: Yes Dyslipidemia: Yes Peripheral Arterial Disease (PAD): No Myocardial Infarction (PA): No Obesity: Yes Renal Disease: No Tobacco Use: Never Prior Interventions PCI: No CABG: No Report Signatures Finalized by Chuck Taylor MD on 09/11/2024 12:05 PM
[2024-08-25] MEDS: diphenhydrAMINE 50 mg Capsule PO (06:15)
--- NOTE | 2024-08-25 07:04 | P.HPUD_ITS ---
Surgery/Procedure H&P Update DATE OF PROCEDURE: August 25, 2024 DATE H&P PERFORMED: 08/12/24 H&P UPDATE INFORMATION: I have reviewed H&P completed within last 30 days, I have examined patient prior to procedure and No changes to prior documentation PREOP DIAGNOSIS: Severe LAD stenosis and VOLUNTEER SERVICES SPECIALIST of RCA. Plan for staged PCI PRIMARY INDICATION FOR PROCEDURE: Severe LAD stenosis and VOLUNTEER SERVICES SPECIALIST of RCA. Plan for staged PCI PLANNED PROCEDURE: Operation Date: 08/25/24 07:00 Proposed Procedures p Percutaneous Coronary Intervention - Staged PCI(Not Applicable) - Chuck Taylor M.D PATIENT REASSESSED PRIOR TO SEDATION, WITH NO CHANGE NOTED: Yes PHYSICAL EXAM: alert, oriented x 3, clear to auscultation bilaterally and regular rate & rhythm AIRWAY EVAL/ANESTHESIA PLAN: normal airway, ASA III, Local Anesthesia, Risks, benefits & alternatives of sedation and/or procedure discussed and Patient agrees to continue as planned ADDITIONAL INFORMATION: Moderate sedation
--- NOTE | 2024-08-25 08:21 | PM.PROC ---
Procedure Note: Date of procedure: 08/25/24 Pre-procedure diagnosis: Severe LAD stenosis Post-procedure diagnosis: other (s/p PCI with 3 stents) Procedure: Left main artery is patent. LAD has severe serial stenosis status post successful revascularization with 3 stents. Left circumflex arteries patent. RCA SYSTEMS SOFTWARE DEVELOPER. Brief attempt at wiring was not successful. Dual antiplatelet therapy with aspirin and plavix High intensity statin therapy Performing Provider: Chuck Taylor Estimated blood loss (mL): 10 Complications: None Condition: stable Disposition: floor Coding Level of Care Code Acute Code for Javier Valdemar
--- NOTE | 2024-08-25 08:30 | PC.NURSE ---
Received the patient back from the label stitcher via bed s/p PCI of the LAD. Patient drowsy but awakens easily to voice. A & [address] and vital signs obtained. Right Femoral access site s/p Angioseal Closure. Groin soft with no bleeding or hematoma noted. Doppled PT &DP pulses. No other assessment changes noted from pre cath assessment. Family at bedside. No concerns voiced at this time. Will plan for CSU transfer once bed becomes available.
--- NOTE | 2024-08-25 13:20 | PC.NURSE ---
Patient transferred via wheelchair to room 101. Report called to MELISSA Platt by Devon Moore RN.
--- NOTE | 2024-08-25 13:40 | PC.NURSE ---
Patient transferred from lab animal technologist to CSU at 1330 with a right femoral angioseal.
[2024-08-25] MEDS: atorvastatin 40 mg Tablet 80 MG PO (21:22)
[2024-08-25] MEDS: temazepam 15 mg Capsule PO (22:05)
[2024-08-26 03:17] LABS: Basophils # 0.1 10^3/uL (0.0-0.1); Basophils % 0.8 %; Eosinophils # 0.2 10^3/uL (0.0-0.8); Eosinophils % 2.1 %; Hematocrit 34.4 % (37-53); Lymphocytes # 1.6 10^3/uL (0.8-4.8); Lymphocytes % 22.5 %; Mean Corpuscular HGB Conc 33.7 g/dL (30-55); Mean Corpuscular Hemoglobin 27.4 pg (27-33); Mean Corpuscular Volume 81.1 fl (82-101); Mean Platelet Volume 10.5 fL (7.4-10.4); Monocytes # 0.5 10^3/uL (0.2-0.9); Monocytes % 7.2 %; Neutrophils # 4.82 10^3/uL (1.8-7.7); Nucleated Red Blood Cells % 0 %; Platelet Count 312 10^3/cmm (157-399); Red Blood Count 4.24 10^6/uL (3.85-5.65); Red Cell Distribution Width 13.2 % (12.1-15.1)
[2024-08-26 03:39] LABS: Anion Gap 16.1 (5-19); Blood Urea Nitrogen 21 mg/dL (8-23); Carbon Dioxide 23 mmol/L (22-29); Chloride 101 mmol/L (98-107); Creatinine Clr Calc Pharmacy 77.2048; Glomerular Filtration Rate 55.2 mL/min (90-130); Glucose 223 mg/dL (65-115); Osmolality Calculated 292 mOsm/kg (285-295); Potassium 4.1 mmol/L (3.5-5.1); Sodium 136 mmol/L (136-145)
[2024-08-26 04:07] VITALS: BP 133/77; PULSE 93; RESP 14; TEMP 36.9; O2SAT 97
--- NOTE | 2024-08-26 07:31 | PM.DCS ---
Discharge Providers Date of Admission: 08/25/2024 Date of Discharge: August 26, 2024 Attending Provider at Admission: Chuck Taylor M.D Attending Provider at Discharge: Chuck Taylor M.D Primary Care Provider: Suresh Sanchez Reason for Visit Reason for Visit: I25.10 Brief History: 64-year-old man with past medical history of hypertension has recently been found to have low LV function and has chest pain episodes. Stress test was abnormal. Plan for coronary angiogram with possible PCI. Hospital Course Hospital Course Patient was brought for coronary angiogram revealing serial LAD stenoses treated with KATERINA x 3, CUSTOMER DEVELOPMENT MANAGER of the RCA wiring unsuccessful. Left circumflex patent. He is doing well overnight, had Angio-Seal placed to the right groin yesterday. He has been ambulating without difficulty, no hematoma present. Heart rates and blood pressures are stable, creatinine 1.3 this morning (baseline 1.2). Will hold metformin until Thursday. Continue aspirin, atorvastatin, Plavix, metoprolol succinate. Follow-up with cardiology clinic in 7 to 10 days. Physical Exam Const: COMMON NORMALS: no acute distress and patient oriented x3 GENERAL APPEARANCE: cooperative ORIENTATION/CONSCIOUSNESS: Yes awake, Yes oriented to person, Yes oriented to place and Yes oriented to time Chest: COMMONS NORMALS: normal inspection of the chest and normal palpation of entire chest wall CHEST: Yes Symmetrical chest wall rise Resp: COMMON NORMALS: normal respiratory effort, No retractions, No use of accessory muscles and clear to auscultation bilaterally AUSCULTATION: clear to auscultation bilaterally Cardio: COMMON NORMALS: regular rate, regular rhythm, S1 normal heart sound present, S2 normal heart sound present, No gallops present (Cardio), No clicks present (Cardio), No murmurs present (Cardio) and No rub (Cardio) RATE: regular rate RHYTHM: regular rhythm HEART SOUNDS: S1 normal heart sound present and S2 normal heart sound present PERIPHERAL PULSES: radial pulses present positive right 2+ and femoral pulses present positive right 2+ Neuro: COMMON NORMALS: patient oriented x3 and moves all extremities SENSORIUM/ORIENTATION: Yes oriented to person, Yes oriented to place and Yes oriented to time Skin: WOUNDS: Yes surgical site (no hematoma palpable) Details: no odor Discharge Data Studies Completed and Pending Pending at discharge Category Date Time Status CANDLE EXTRUSION MACHINE OPERATOR request for service Routine Exams 08/25/24 06:00 Taken Laboratory Results WBC 7.20 10^3/uL (3.29-11.43) 08/26/24 02:30 RBC 4.24 10^6/uL (3.85-5.65) 08/26/24 02:30 Hgb 11.60 g/dL (11.27-16.99) 08/26/24 02:30 Hct 34.4 % (37-53) L 08/26/24 02:30 MCV 81.1 fl (82-101) L 08/26/24 02:30 MCH 27.4 pg (27-33) 08/26/24 02: MCHC 33.7 g/dL (30-55) 08/26/24 02:30 RDW 13.2 % (12.1-15.1) 08/26/24 02:30 Plt Count 312 10^3/cmm (157-399) 08/26/24 02:30 MPV 10.5 fL (7.4-10.4) H 08/26/24 02:30 Neut % (Auto) 67.0 % 08/26/24 02:30 Lymph % (Auto) 22.5 % 08/26/24 02:30 Tucker % (Auto) 7.2 % 08/26/24 02:30 Eos % (Auto) 2.1 % 08/26/24 02:30 Baso % (Auto) 0.8 % 08/26/24 02:30 Neut # (Auto) 4.82 10^3/uL (1.8-7.7) 08/26/24 02:30 Lymph # (Auto) 1.6 10^3/uL (0.8-4.8) 08/26/24 02:30 Tucker # (Auto) 0.5 10^3/uL (0.2-0.9) 08/26/24 02:30 Eos # (Auto) 0.2 10^3/uL (0.0-0.8) 08/26/24 02:30 Baso # (Auto) 0.1 10^3/uL (0.0-0.1) 08/26/24 02:30 Nucleated RBC % (auto) 0 % 08/26/24 02:30 Nucleated RBCs # 0.0 /100WBC 08/26/24 02:30 Sodium 136 mmol/L (136-145) 08/26/24 02:30 Potassium 4.1 mmol/L (3.5-5.1) 08/26/24 02:30 Chloride 101 mmol/L (98-107) 08/26/24 02:30 Carbon Dioxide 23 mmol/L (22-29) 08/26/24 02:30 Anion Gap 16.1 (5-19) 08/26/24 02:30 BUN 21 mg/dL (8-23) 08/26/24 02:30 Creatinine 1.3 mg/dL (0.7-1.2) H 08/26/24 02:30 GFR Calculation 55.2 mL/min (90-130) L 08/26/24 02:30 Glucose 223 mg/dL (65-115) H 08/26/24 02:30 Calculated Osmolality 292 mOsm/kg (285-295) 08/26/24 02:30 Calcium 9.0 mg/dL (8.5-10.5) 08/26/24 02:30 Vitals Last Vital Signs Temp 98.5 F 08/26/24 04:07 Pulse 93 08/26/24 04:07 Resp 14 08/26/24 04:07 BP 133/77 08/26/24 04:07 Pulse Ox 97 08/26/24 04:07 O2 Del Method Room Air 08/26/24 04:07 Discharge Plan Discharge Patient Disposition: Home Prescriptions: New atorvastatin 40 mg Tablet 80 mg PO BEDTIME Qty: 90 3RF clopidogrel 75 mg Tablet 75 mg PO DAILY Qty: 90 3RF Continued spironolactone 25 mg tablet 25 mg PO DAILY aspirin 81 mg tablet 81 mg PO DAILY metoprolol succinate 25 mg tablet extended release 24 hr 12.5 mg PO DAILY Qty: 30 1RF lisinopril 20 mg tablet 40 mg PO DAILY furosemide [Lasix] 20 mg tablet 40 mg PO DAILY Held metformin 500 mg tablet 500 mg PO DAILY Qty: 90 3RF Hold Instructions: Resume on 08/29/24. Discontinued simvastatin 5 mg Tablet 5 mg PO QPM Discharge Orders: Discharge Order (Routine); Ordered 08/26/24 Ordered By: Fiona Padilla Referrals: Suresh Sanchez [Primary Care Provider, Family Practice] Fiona Padilla FNP [Nurse Practitioner, Cardiology] - 7-10 days Diet: Advance as tolerated Activity: Increase activity as tolerated Patient Instructions: Coronary Angioplasty (DC) Activity Restrictions/Additional Instructions: No lifting over 5 pounds for the next 4 days. Print Language: [place] Discharge Attestations Time Spent in Discharge Care*: less than 30 min Quality Metrics Clinical Quality Measures [ No reported AMI, CVA or VTE this stay] Coding Level of Care Code Acute Code for Emily Aldrich
[2024-08-26 08:16] VITALS: BP 152/80; PULSE 92; RESP 16; TEMP 36.8; O2SAT 97
[2024-08-26] MEDS: clopidogrel 75 mg Tablet PO (08:53)
[2024-08-26] MEDS: metoprolol succinate ER (24 HR) 25 mg Tablet 12.5 MG PO (08:53)
[2024-08-26] MEDS: aspirin 81 mg EC Tablet PO (08:53)
== END 2024-08-26 10:01 | disposition home or self-care (01) ==
LOC: CCL 06:10 → CSU 13:23
PROVIDERS: Nurse Practitioner Family; PCP Family Medicine; Visit Provider Internal Medicine
DX: I25.10 Atherosclerotic heart disease of native coronary artery without angina pectoris (principal); I25.82 Chronic total occlusion of coronary artery; E78.5 Hyperlipidemia, unspecified; E66.9 Obesity, unspecified; Z68.36 Body mass index [BMI] 36.0-36.9, adult; Z79.82 Long term (current) use of aspirin; Z79.84 Long term (current) use of oral hypoglycemic drugs; I13.0 Hypertensive heart and chronic kidney disease with heart failure and stage 1 through stage 4 chronic kidney disease, or unspecified chronic kidney disease; N18.9 Chronic kidney disease, unspecified; I50.33 Acute on chronic diastolic (congestive) heart failure
CPT/HCPCS: 12345; 36415; 80048; 85025; 85347; 92978; 96376; 99152; 99153; C1725; C1753; C1760; C1769; C1887; C1894; C9600; G0269; J1644; J2250; J3010; J3490; J7030; J9999; Q0163; Q9967

== ENCOUNTER → 2024-09-07 14:39 | Outpatient (BNVA) | payer MEDICARE, SELFPAY | PROVIDERS: PCP Family Medicine; Visit Provider Internal Medicine | DX: I13.0 Hypertensive heart and chronic kidney disease with heart failure and stage 1 through stage 4 chronic kidney disease, or unspecified chronic kidney disease (principal); N18.9 Chronic kidney disease, unspecified; I50.33 Acute on chronic diastolic (congestive) heart failure; I25.10 Atherosclerotic heart disease of native coronary artery without angina pectoris; Z79.02 Long term (current) use of antithrombotics/antiplatelets; Z79.82 Long term (current) use of aspirin; Z95.5 Presence of coronary angioplasty implant and graft | CPT/HCPCS: 99214 ==

== ENCOUNTER → 2025-03-07 10:26 | Outpatient (BNVA) | payer MEDICARE, SELFPAY | PROVIDERS: PCP Family Medicine; Visit Provider Internal Medicine | DX: I25.10 Atherosclerotic heart disease of native coronary artery without angina pectoris (principal); I13.0 Hypertensive heart and chronic kidney disease with heart failure and stage 1 through stage 4 chronic kidney disease, or unspecified chronic kidney disease; I50.33 Acute on chronic diastolic (congestive) heart failure; N18.9 Chronic kidney disease, unspecified; Z87.891 Personal history of nicotine dependence | CPT/HCPCS: 99213 ==